=== PATIENT | male | born 1980 | race Caucasian/White ===

== ENCOUNTER 2016-10-24 22:04 | Emergency (ER) | payer OTHER ==
--- NOTE | ~2016-10-24 | CR63 ---
[facility] A Service of [facility] RADIOLOGY TEXT RESULTS PATIENT: MARTINEZ CRAFT LOCATION: [facility] : 80 UNIT #: [id number] AGE: [address]: Reed Fields MD SEX: M ORDER DR: [id number] [facility] [address] [place], [place] [address] [id number] E MR#: [id number] Acc #: [id number] NAME: MARTINEZ CRAFT : 1980 SEX: M STUDY DATE/TIME: 10/24/2016 22:40 UNIT: [facility] ROOM: STUDY DESCRIPTION: CR Chest 2 View Attending Physician: Reed Fields M.D. Ordering Physician: Reed Fields M.D. Primary Care Physician: Primary Care Physician No MEDICAL IMAGING REPORT This report is preliminary unless electronic signature is present EXAM Chest x-ray, 10/24 at 22:40 INDICATION Cough, fever and congestion for the last 2 weeks. FINDINGS 2 views of the chest are compared with 12/25/2014. Cardiac and mediastinal contours are normal. The lungs are clear. There is no pneumothorax. IMPRESSION No active disease. Dictated by... Reed Araya Jr., M.D. THIS IS AN ELECTRONICALLY VERIFIED REPORT Reed Araya Jr., M.D. at 10/25/2016 10:59 PM MICHAELA/alok TD: 10/25/2016 15:53 JOB #: [id number] MEDICAL IMAGING REPORT COPY
[~2016-10-24 22:04] MED LIST: ALBUTEROL MININEB INH; ALBUTEROL17 GM INH; ANTI-INFLAMATORY; BACTRIM DS TABL1 TA1; CELEXA PO; DICLOFENAC PO; DOXYCYCLINE MO100 MG PO; FLEXERIL PO; FLEXERIL10 MG PO; GABAPENTIN600 MG PO; HYDROCODON-ACE1 EAC9 PO; KEFLEX PO; KEFLEX250 M1 PO; NAPROSYN500 MG PO; NEURONTIN800 MG PO; NO MEDICATIONS; NORCO 5/325 TAB1 TAB PO; NORFLEX100 M1 DOB; PREDNISONE PO; PROMETHAZINE D118 ML PO; VOLTAREN75 MG PO; ZITHROMAX PO
[2016-10-24 22:44] LABS: POC - CKMB 2.2 ng/mL (0.0-7.9); POC - TROPONIN <0.05 ng/mL (<=0.05)
== END 2016-10-25 00:05 | disposition home or self-care (01) ==
LOC: CED 22:04
PROVIDERS: Emergency Medicine
DX: J06.9 Acute upper respiratory infection, unspecified (principal); J45.909 Unspecified asthma, uncomplicated; F17.200 Nicotine dependence, unspecified, uncomplicated; Z91.030 Bee allergy status; Z88.1 Allergy status to other antibiotic agents; Z88.5 Allergy status to narcotic agent
CPT/HCPCS: 71020; 82553; 84484; 94640; 99283

== ENCOUNTER 2017-01-13 12:05 | Emergency (ER) | payer OTHER | END 2017-01-13 15:08 | disposition left against medical advice (07) | LOC: CED 12:05 | DX: Z53.21 Procedure and treatment not carried out due to patient leaving prior to being seen by health care provider (principal) ==

== ENCOUNTER 2017-01-13 16:41 | Emergency (ER) | payer OTHER | END 2017-01-13 17:06 | disposition left against medical advice (07) | LOC: CED 16:41 | DX: Z53.21 Procedure and treatment not carried out due to patient leaving prior to being seen by health care provider (principal) ==